=== PATIENT | male | born 1975 | race Hispanic/Latino ===

== ENCOUNTER 2018-06-15 16:02 | Emergency (ER) | payer SELFPAY ==
[~2018-06-15] VITALS: Ht 162.6 cm; Wt 70.0 kg
[2018-06-15 16:52] LABS: HEMATOCRIT 43.2 % (39.0-50.0); IMMATURE GRANULOCYTES 0.7 % (0.0-5.0); MEAN CELL VOLUME 87.8 fL CALC (80.0-100.0); MEAN CORPUSCULAR HGB 30.5 pG CALC (26.0-32.0); MEAN CORPUSCULAR HGB CONC 34.7 g/L CALC (32.0-36.0); NEUT# 5.86 thou/uL (1.82-7.42); RED BLOOD COUNT 4.92 mill/uL (4.70-6.10); RED CELL DISTRI WIDTH 11.8 % (11.5-15.5)
[2018-06-15 17:14] LABS: ALBUMIN 5.3 g/dL (3.2-5.0); ALKALINE PHOSPHATASE 82 u/l (38-126); ANION GAP 18 (6-22 (CALC)); BUN 11 mg/dL (9-20); BUN/CREATININE RATIO 21 (12-20 (CALC)); CARBON DIOXIDE 24 mmol/l (22-30); CHLORIDE 104 mmol/l (95-108); CREATININE 0.5 mg/dL (0.7-1.3); GFR > 60 ML/MIN (>=60 (CALC)); GFR FOR AFR.AMER. > 60 ML/MIN (>=60 (CALC)); LIPASE 51 u/l (23-300); POTASSIUM 4.2 mmol/l (3.5-5.1); SGOT/AST 28 u/l (17-59); SODIUM 143 mmol/l (137-146)
[2018-06-15] MEDS ORDERED: PROTONIX40 M2 PO (18:32)
[2018-06-15] MEDS ORDERED: REGLAN10 MG PO (18:32)
[2018-06-15] MEDS ORDERED: ONDANSETRON4 MG PO (18:32)
[2018-06-15 18:40] VITALS: BP 177/84
== END 2018-06-15 18:47 | disposition home or self-care (01) | DRG 392 ==
LOC: ED 16:02
PROVIDERS: Emergency Medicine
DX: R11.2 Nausea with vomiting, unspecified (principal); R10.33 Periumbilical pain; E11.9 Type 2 diabetes mellitus without complications; Z79.84 Long term (current) use of oral hypoglycemic drugs
CPT/HCPCS: S0164